=== PATIENT | female | born 1985 | race Caucasian/White ===

== ENCOUNTER → 2016-10-30 | Outpatient (CLI) | payer BC ==
--- NOTE | 2016-10-30 14:50 | US ---
EXAMINATION TYPE: US OB <= 14 wk fetus DATE OF EXAM: 10/30/2016 2:37 PM COMPARISON: NONE CLINICAL HISTORY: Z36 confirm dates. Positive beta-hCG test EXAM PERFORMED: Transvaginal (TV) and Transabdominal (TA) EXAM MEASUREMENTS: GESTATIONAL AGE / DATING Physician Established: (12 weeks/4 days) EDC: 05/10/2017 Dates by LMP: (12 weeks/4 days) EDC: 05/10/2017 Dates by First Scan: this is first scan Dates by Current Scan for: (11 weeks/1 days) EDC: 05/20/2017 MATERNAL ANATOMY Uterus: 12.5 x 8.9 x 7.8 cm Right Ovary: 2.9 x 1.7 x 2.7 cm Left Ovary: 4.0 x 2.4 x 2.5 cm Post CDS / Adnexa: wnl Presence of free fluid: none GESTATION / SURVEY CRL: 4.3 cm (11 weeks/1 days) Yolk Sac (normal less than 6mm): 0.5 cm Heart Rate: 164 bpm Rhythm: Normal IUP: Viable IUP Nuchal Translucency 10-14wks (normal less than 3mm): 1.2 mm Date of LMP: 08/03/2016 TECHNOLOGIST IMPRESSION: viable IUP at 11 weeks 1 day Single live intrauterine gestation is seen as gestational sac, yolk sac, and pole are identifie d. heart tones are regular measure 164 bpm which is within normal limits. No free fluid is seen in pelvic cul-de-sac. Both ovaries are identified. No suspicious extraovarian adnexal mass is seen bilaterally. IMPRESSION: Single live intrauterine gestation is seen, mean crown-rump length is 4.3 cm corresponding to 11 week 1 day old fetus.
== END | disposition home or self-care (01) ==
LOC: RADUSWWP 14:22
PROVIDERS: ATTEND Obstetrics & Gynecology
DX: Z36 Encounter for antenatal screening of mother (principal); Z3A.11 11 weeks gestation of pregnancy
CPT/HCPCS: 76801; 76813

== ENCOUNTER → 2016-11-05 | Outpatient (CLI) | payer BC ==
[2016-11-05 14:07] LABS: CH 33.3; CHCM 34.3; HCT 40.9 % (34.0-46.0); HDW 2.46; HGB 13.7 gm/dL (11.4-16.0); MCH 32.6 pg (25.0-35.0); MCHC 33.4 g/dL (31.0-37.0); MCV 97.6 fL (80.0-100.0); Mean Platelet Volume 7.1; RBC 4.19 m/uL (3.80-5.40); RDW 12.8 % (11.5-15.5); WBC 7.3 k/uL (3.8-10.6)
[2016-11-05 14:25] LABS: Glucose 88 mg/dL (74-99); Non-African American GFR(MDRD) >60 (>60 ml/min/1.73 sqM)
[2016-11-05 14:54] LABS: Hepatitis B Surface Ag Index 0.08
[2016-11-06 05:56] LABS: Toxoplasma Antibody (IgG) <3.0 IU/mL (<7.2)
[2016-11-08 11:25] LABS: HIV-1/HIV-2 Ab Screen NONREAC (NON REAC)
== END | disposition home or self-care (01) ==
LOC: LABWHC1 13:35
PROVIDERS: ATTEND Obstetrics & Gynecology
DX: O26.811 Pregnancy related exhaustion and fatigue, first trimester (principal); Z3A.00 Weeks of gestation of pregnancy not specified
CPT/HCPCS: 36415; 82565; 82947; 85027; 86762; 86777; 86778; 86780; 86850; 86900; 86901; 87340; 87389

== ENCOUNTER → 2016-12-16 | Outpatient (CLI) | payer BC ==
--- NOTE | 2016-12-16 17:55 | US ---
EXAMINATION TYPE: US OB anatomy transabd DATE OF EXAM: 12/16/2016 5:14 PM COMPARISON: 10/30/2016 HISTORY: O36.62X0 Large for Dates TECHNIQUE: Transabdominal (TA) EXAM MEASUREMENTS: GESTATIONAL AGE / DATING Physician Established: ( 17 weeks/6 days) EDC: 05/20/17 Dates by LMP: (19 weeks/2 days) EDC: 05/10/17 Dates by First Scan: (17 weeks/6 days) EDC: 05/20/17 Dates by Current Scan for: (18 weeks/0 days) EDC: 05/19/17 SURVEY IUP: Single PLACENTA: Posterior PREVIA: No previa ALICE: 9.5 cm CERVICAL LENGTH (transabdominal: norm > 3.0cm): 3.0 cm BIOMETRY PRESENTATION: Vertex LIE: Transverse lie with head maternal Left BPD: 4.1 cm 18 weeks / 3 days HC: 15.2 cm 18 weeks / 2 days AC: 12.6 cm 18 weeks / 1 days FL: 2.5 cm 17 weeks / 4 days ESTIMATED WEIGHT IN GRAMS: 217 grams ESTIMATED WEIGHT IN LBS/OZS: 0 lbs. 8 oz. WEIGHT PERCENTAGE BASED ON ESTABLISHED DATE: 52 % HC/AC: 1.2 FL/AC: 19.9 HEART RATE: 155 bpm RHYTHM: Normal ANATOMY SEEN (within normal limits): * Lateral Vent (< 1 cm) 0.9 cm * Cisterna Magna (< 1.1 cm) 0.4 cm * Nuchal Fold (< 0.6 cm) 0.2 cm * Cerebellum (varies with age) 1.5 cm Choroid Plexus (bilateral)3 cysts seen, 2 in anterior choroid measuring 0.4cm and 0.3cm, posterior measuring 0.5cm Midline Falx Cavus Septi Pellucidi Four Chamber Heart Outflow tracts: LVOT/RVOT Stomach Situs Nose / Lips Diaphragm Kidneys (bilateral) Bladder Cord Insert Three Vessel Cord Longitudinal Spine Transverse Spine Arms (bilateral) Legs (bilateral) 3 choroid plexus cysts seen, otherwise normal appearing anatomy scan. IMPRESSION: The ultrasound gestational age is 18 weeks. I see no complicating process. There is satisfactory grow th compared to 10/30/2016.
== END ==
LOC: RADUSWWP 16:22
PROVIDERS: ATTEND Obstetrics & Gynecology
DX: O36.62X0 Maternal care for excessive fetal growth, second trimester, not applicable or unspecified (principal); Z3A.18 18 weeks gestation of pregnancy
CPT/HCPCS: 76811

== ENCOUNTER → 2017-01-28 | Outpatient (CLI) | payer BC ==
[2017-01-28 16:40] LABS: CH 34.6; CHCM 34.7; HCT 37.4 % (34.0-46.0); HDW 2.66; HGB 12.5 gm/dL (11.4-16.0); MCH 33.5 pg (25.0-35.0); MCHC 33.4 g/dL (31.0-37.0); MCV 100.3 fL (80.0-100.0); Mean Platelet Volume 6.3; RBC 3.73 m/uL (3.80-5.40); RDW 13.2 % (11.5-15.5); WBC 7.8 k/uL (3.8-10.6)
== END | disposition home or self-care (01) ==
LOC: LABWHC1 15:02
PROVIDERS: ATTEND Obstetrics & Gynecology
DX: Z34.82 Encounter for supervision of other normal pregnancy, second trimester (principal); Z3A.00 Weeks of gestation of pregnancy not specified
CPT/HCPCS: 36415; 82950; 85027

== ENCOUNTER 2017-05-17 14:56 | Inpatient (IN) | payer BC ==
[2017-05-17] MEDS ORDERED: LIDOCAINE 1% (PF) 10 MG/ML (30 ML SDV) SQ PRN (15:43)
[2017-05-17] MEDS ORDERED: METHYLERGONOVINE 0.2 MG/ML 1 ML AMP IM PRN (15:43)
[2017-05-17] MEDS ORDERED: OXYTOCIN 10 UNIT/ML 1 ML VIAL IM PRN (15:43)
[2017-05-17] MEDS ORDERED: CARBOPROST TROMETHAMINE 250 MCG/ML 1 ML AMP IM PRN (15:43)
[2017-05-17] MEDS ORDERED: TERBUTALINE 1 MG/ML VIAL SQ PRN (15:43)
[2017-05-17] MEDS: LACTATED RINGERS 1,000 ML IV SCH ×3 (15:45→19:27)
[2017-05-17 15:54] LABS: Basophils % (A) 0 %; CH 34.5; CHCM 34.6; Eosinophils % (A) 0 %; HCT 41.5 % (34.0-46.0); HDW 2.55; HGB 14.4 gm/dL (11.4-16.0); Luc # (Auto) 0.28; Luc % (Auto) 3; Lymphocytes # (A) 1.2 k/uL (1.0-4.8); Lymphocytes % (A) 15 %; MCH 34.9 pg (25.0-35.0); MCHC 34.8 g/dL (31.0-37.0); MCV 100.3 fL (80.0-100.0); Mean Platelet Volume 6.9; Monocytes # (A) 0.6 k/uL (0-1.0); Monocytes % (A) 7 %; Neutrophils # (A) 6.2 k/uL (1.3-7.7); Neutrophils % (A) 75 %; RBC 4.14 m/uL (3.80-5.40); RDW 12.7 % (11.5-15.5); WBC 8.3 k/uL (3.8-10.6); WBC (Perox) 8.86
[2017-05-17] MEDS ORDERED: SODIUM CHLORIDE 0.9% 100 ML BAG ONE (16:02)
[2017-05-17] MEDS ORDERED: BUPIVACAINE (PF) 0.25% 30 ML VIAL ONE (16:02)
[2017-05-17] MEDS ORDERED: fentaNYL (PF) 50 MCG/ML 5 ML AMP ONE (16:02)
[2017-05-17] MEDS ORDERED: BUPIVACAINE (PF) 0.25% 25 ML, fentaNYL (PF) 200 MCG in SODIUM CHLORIDE 0.9% 71 ML EPIDURAL ONE (16:19)
--- NOTE | 2017-05-17 16:37 | P.HPOB ---
History of Present Illness H&P Date: 05/17/17 Chief Complaint: Labor 31 year old presents at 39 weeks 2 days in labor. She is lyudmila every 2-4 minutes. heart tones are 135-140 with moderate variability and reactive. Her cervix is 6-7/90/-1. Review of Systems All systems: negative Constitutional: Denies chills, Denies fever Eyes: denies blurred vision, denies pain Ears, nose, mouth and throat: Denies headache, Denies sore throat Cardiovascular: Denies chest pain, Denies shortness of breath Respiratory: Denies cough Gastrointestinal: Denies abdominal pain, Denies diarrhea, Denies nausea, Denies vomiting Genitourinary: Denies dysuria, Denies hematuria Musculoskeletal: Denies myalgias Integumentary: Denies pruritus, Denies rash Neurological: Denies numbness, Denies weakness Psychiatric: Denies anxiety, Denies depression Endocrine: Denies fatigue, Denies weight change Past Medical History Past Medical History: No Reported History Additional Past Medical History / Comment(s): OB history: first was a vaginal delivery. Second she had a miscarriage. Third was also a vaginal delivery. This is her fourth and she had care with mt since 10 weeks. O+, abs neg, Rub Imm, RPR Nr, Hep B neg, HIV NR, toxo neg. GBS neg. History of Any Multi-Drug Resistant Organisms: None Reported Past Surgical History: No Surgical Hx Reported Past Anesthesia/Blood Transfusion Reactions: No Reported Reaction Past Psychological History: No Psychological Hx Reported Smoking Status: Never smoker Medications and Allergies Home Medications Medication Instructions Recorded Confirmed Type Pnv,Calcium 72/Iron/Folic Acid 1 each PO 10/16/15 10/16/15 History [ Plus Tablet] Allergies Allergy/AdvReac Type Severity Reaction Status Date / Time No Known Allergies Allergy Verified 10/16/15 15:05 Exam Osteopathic Statement: *. No significant issues noted on an osteopathic structural exam other than those noted in the History and Physical/Consult. - Vital Signs Vital signs: Intake and Output 05/17/17 05/17/17 05/17/17 06:59 14:59 22:59 Other: Weight 79.379 kg Patient Weight 05/18/17 06:59 Weight 79.379 kg Heart: Regular rate and rhythm Lungs: Clear to auscultation bilaterally Abdomen: Soft, nontender Extremities: Negative Homans sign Results Result Diagrams: 05/17/17 15:40 Abnormal Lab Results - Last 24 Hours (Table) 05/17/17 Range/Units 15:40 MCV 100.3 H (80.0-100.0) fL Assessment and Plan (1) Normal labor Status: Acute Plan: 1. Admit to family place 2. Expectant management 3. Anticipate normal vaginal delivery
[2017-05-17 16:40] VITALS: BMI 30.9
[2017-05-17] MEDS ORDERED: BENZOCAINE/MENTHOL SPRAY 1 GM/SPRAY AEROSOL TOPICAL PRN (17:23)
[2017-05-17] MEDS ORDERED: HYDROCORTISONE 2.5% RECTAL CREAM 30 GM TUBE RECTAL PRN (17:23)
[2017-05-17] MEDS ORDERED: ZOLPIDEM 5 MG TAB PO PRN (17:23)
[2017-05-17] MEDS ORDERED: ACETAMINOPHEN TAB 325 MG TAB PO PRN (17:23)
[2017-05-17] MEDS ORDERED: LANOLIN CREAM 5 GM TUBE TOPICAL PRN (17:23)
[2017-05-17] MEDS ORDERED: SIMETHICONE 80 MG CHEWABLE PO PRN (17:23)
[2017-05-17] MEDS ORDERED: Acetaminophen-Codeine 300-30mg TAB PO PRN ×2 (17:23)
[2017-05-17] MEDS ORDERED: diphenhydrAMINE 50 MG/ML 1 ML VIAL IVP PRN ×2 (17:23)
[2017-05-17] MEDS ORDERED: diphenhydrAMINE 50 MG CAP PO PRN (17:23)
[2017-05-17] MEDS ORDERED: WITCH HAZEL 1 EACH MED..PAD TOPICAL PRN (17:23)
[2017-05-17] MEDS ORDERED: diphenhydrAMINE 25 MG CAP PO PRN (17:23)
--- NOTE | 2017-05-17 17:29 | P.PROBDLV ---
Vaginal Delivery Note - . Vaginal Delivery Note: 31-year-old presents at 39 weeks 2 days in active labor. Her cervix was 6 -7 cm dilated, 90% effaced, and -1 station. She is lyudmila every 2-4 minutes. heart tones 135-140 with moderate variability and reactive. She did get an epidural and was comfortable. Amniotomy was performed at 1625 when she was 8 cm dilated and clear fluid was noted. She was complete at 1650, pushed and delivered a viable male infant over intact perineum under epidural anesthesia at 1659. Head delivered OA, tight nuchal cord cut at the perineum, anterior shoulder which was the left shoulder delivered gentle downward traction followed by posterior shoulder and rest of body. Nose and mouth bulb suctioned, cord clamped and cut, infant placed on mother's abdomen. Apgars 8, 9 , weight 8 lbs. 2 oz. Placenta delivered spontaneously, intact with three- vessel cord at 1703. Vagina, cervix, and perineum inspected. No lacerations noted. Estimated blood loss 100 mL. Mother and baby in stable condition.
[2017-05-17] MEDS ORDERED: OXYTOCIN 20 UNITS/1000 ML NS 1,000 ML IV SCH (17:30)
[2017-05-17] MEDS: SENNOSIDES-DOCUSATE SODIUM 1 EACH TAB PO SCH (23:06)
[2017-05-18] MEDS: IBUPROFEN 600 MG TAB PO PRN ×2 (05:20→16:57)
[2017-05-18] MEDS: SENNOSIDES-DOCUSATE SODIUM 1 EACH TAB PO SCH (08:41)
--- NOTE | 2017-05-18 10:09 | P.DS ---
Providers Date of admission: 05/17/17 15:21 Expected date of discharge: 05/18/17 Attending physician: Jossie Alvarenga Primary care physician: Stated None - Discharge Diagnosis(es) (1) Normal labor Current Visit: Yes Status: Resolved (2) Normal vaginal delivery Current Visit: No Status: Acute Hospital Course: Patient presented in active labor. She underwent a normal vaginal delivery. Her course was uncomplicated. She denies nausea, vomiting, chest pain, shortness of breath or calf pain. She is tolerating regular diet ambulating and voiding without difficulty. She will be discharged home day #1 in stable condition to follow-up with me in 6 weeks. Plan - Discharge Summary New Discharge Prescriptions: No Action Pnv,Calcium 72/Iron/Folic Acid [ Plus Tablet] 1 each PO Discharge Medication List Pnv,Calcium 72/Iron/Folic Acid [ Plus Tablet] 1 each PO 10/16/15 [ History] Follow up Appointment(s)/Referral(s): Jossie Alvarenga DO [Doctor of Osteopathic Medicine] - 6 Weeks Discharge Disposition: HOME SELF-CARE
--- NOTE | 2017-05-18 10:14 | P.MSEPDOC ---
Presenting Problems - Arrival Data Date of Arrival on Unit: 05/17/17 Time of Arrival on Unit: 15:30 Mode of Transport: Ambulatory - Complaint OB-Reason for Admission/Chief Complaint: Possible Onset of Labor Comment: contx onset 0600 this am. stronger the last hour. Medical History - Information : 4 Para: 2 Term: 2 : 0 Abortions: Spontaneous or Elective: 1 Number of Living Children: 2 - Gestational Age Expected Date of Delivery: 05/20/17 Gestational Age by VANESA (wks/days): 39 Weeks and 5 Days Review of Systems - Review of Systems Constitutional: No problems Breast: No problems ENT: No problems Cardiovascular: No problems Respiratory: No problems Gastrointestinal: No problems Genitourinary: No problems Musculoskeletal: No problems Neurological: No problems Skin: No problems Comment: varicose veins Vital Signs - Temperature Temperature: 97.9 F Temperature Source: Oral - Pulse Right Brachial Pulse Rate: 90 Pulse Assessment Method: Auscultation - Respirations Respiratory Rate: 16 Oxygen Delivery Method: Room Air - Blood Pressure Right Arm Blood Pressure: 113/65 Blood Pressure Mean: 81 Blood Pressure Source: Automatic Cuff Medical Screen Scoring (Pre) - Cervical Exam Dilation: 4-7 cm = 2 Effacement: More than 50% = 2 Membranes: Intact - Uterine Contractions Frequency: > or = 36 weeks =2 Duration: > 40 seconds = 2 Intensity: Contraction palpated strong = 1 - Maternal Vital Signs Maternal Temperature: N/A Maternal Blood Pressure: N/A Signs of Preeclampsia: N/A Maternal Respirations: N/A - Maternal Trauma Maternal Trauma: N/A - Assessment Baseline FHR: 135 Heart Rate - NICHD Category: Category I (Normal) = 0 NST: Reactive Position: N/A Station: N/A - Total Score Total Score (Pre): 9 - Level of Risk Level of Risk: Medium (6-9) Physician Notification (Pre) - Physician Notified Physician Notified Date: 05/17/17 Physician Notified Time: 15:30 Physician/Practitioner Notifed:: emily Espino Order Received: Yes - Notification Comment Comment: admission and epidural Disposition - Disposition OB Disposition: LDRP Suite Transferred to:: 7 Discharge Date: 05/17/17 Discharge Time: 15:40 I agree with the RN Medical Screening Exam: Yes Risk & Benefit of care provided described in d/c instruction: Yes Diagnosis: ENCOUNTER FOR FULL-TERM UNCOMPLICATED DELIVERY
[2017-05-18 16:13] VITALS: BP 125/75; PULSE 79; RESP 18; TEMP 98.9
== END 2017-05-18 17:51 | disposition home or self-care (01) | DRG 775 ==
LOC: FBPOP 14:56 → 4FBP 15:21
PROVIDERS: ADMIT Obstetrics & Gynecology; ATTEND Obstetrics & Gynecology
PROC: 10E0XZZ Delivery of Products of Conception, External Approach (ICD-10-PCS; principal; 2017-05-17)
PROC: 3E0S3NZ Introduction of Analgesics, Hypnotics, Sedatives into Epidural Space, Percutaneous Approach (ICD-10-PCS; 2017-05-17)
PROC: 10907ZC Drainage of Amniotic Fluid, Therapeutic from Products of Conception, Via Natural or Artificial Opening (ICD-10-PCS; 2017-05-17)
DX: O69.1XX0 Labor and delivery complicated by cord around neck, with compression, not applicable or unspecified (principal); Z37.0 Single live birth; Z3A.39 39 weeks gestation of pregnancy
CPT/HCPCS: 85025; 88307

== ENCOUNTER → 2023-10-27 | Outpatient (CLI) | payer BC ==
--- NOTE | 2023-10-28 13:04 | MM ---
Reason for Exam: Screening (asymptomatic). Patient History: Menarche at age 15. First Full-Term at age 25. Premenopausal. Risk Values: Marilyn 5 year model risk: 0.3%. NCI Lifetime model risk: 9.2%. Tissue Density: The breast tissue is extremely dense which could obscure a lesion on mammography. Findings: Analyzed By CAD. There is no suspicious group of microcalcifications or new suspicious mass. Overall Assessment: Negative, BI-RAD 1 Management: Screening Mammogram of both breasts in [address] [facility] will attempt to contact patient to return for supplemental views and ultrasound if indicated. Patient should continue monthly self-breast exams. A clinical breast exam by your physician is recommended on an annual basis. This exam should not preclude additional follow-up of suspicious palpable abnormalities. Note on Marilyn scores and lifetime risk: 1. A Marilyn score greater than 3% is considered moderate risk. If this is the case, consider specialist referral to assess eligibility for a risk reducing agent. 2. If overall lifetime risk for the development of breast cancer is 20% or higher, the patient may qualify for future screening with alternating mammogram and breast MRI. Electronically signed and approved by: Fernando Sandoval DO
== END | disposition home or self-care (01) ==
LOC: RADMAMWWP 13:07
PROVIDERS: ATTEND Obstetrics & Gynecology
DX: Z12.31 Encounter for screening mammogram for malignant neoplasm of breast (principal)
CPT/HCPCS: 77063; 77067